=== PATIENT | male | born 1955 | race African-American/Black ===

== ENCOUNTER 2020-12-24 18:45 | Inpatient (IN) | payer MEDICARE, OTHER ==
[~2020-12-24] VITALS: Ht 177.8 cm; Wt 75.2 kg
[2020-12-24 19:15] LABS: BASOPHILS ABSOLUTE AUTO 0.03 K/mm3 (0.00-0.23); BASOPHILS PERCENT AUTO 1 % (0-2); EOSINOPHILS ABSOLUTE AUTO 0.22 K/mm3 (0.00-0.68); EOSINOPHILS PERCENT AUTO 4 % (0-6); Hematocrit 39.9 % (37.0-53.0); Hemoglobin 12.3 g/dL (13.5-17.5); IMMATURE GRAN ABSOLUTE AUTO 0.02 K/mm3 (0.00-0.10); IMMATURE GRAN PERCENT AUTO 0 % (0-1); LYMPHOCYTES ABSOLUTE AUTO 2.33 K/mm3 (0.84-5.20); LYMPHOCYTES PERCENT AUTO 37 % (21-46); MONOCYTES ABSOLUTE AUTO 0.46 K/mm3 (0.16-1.47); MONOCYTES PERCENT AUTO 7 % (4-13); Mean Corpuscular HGB 29.6 pg (26.0-34.0); Mean Corpuscular HGB Conc 30.8 g/dL (31.5-36.5); Mean Corpuscular Volume 96 fL (80-100); Mean Platelet Volume 11.5 fL (9.1-12.4); NEUTROPHILS ABSOLUTE AUTO 3.22 K/mm3 (1.96-9.15); NEUTROPHILS PERCENT AUTO 51 % (41-73); Platelet Count 195 K/mm3 (150-400); RDW Standard Deviation 49.5 fL (35.1-46.3); Red Blood Cell Count 4.15 M/mm3 (4.30-5.90); White Blood Cell Count 6.28 K/mm3 (4.00-11.30)
[2020-12-24 19:37] LABS: Magnesium, Blood 2.8 mg/dL (1.6-2.4)
[2020-12-24 19:39] LABS: Albumin, Blood 3.9 g/dL (3.4-5.0); Albumin/Globulin Ratio 0.8 (0.8-1.8); Bilirubin, Total 0.3 mg/dL (0.1-1.0); Bun/Creatinine Ratio 5.7 (12.0-20.0); Calcium, Blood 9.2 mg/dL (8.5-10.1); Creatinine, Blood 12.6 mg/dL (0.60-1.20); Phosphorus, Blood 4.4 mg/dL (2.5-4.9); Potassium, Blood 4.4 mmol/L (3.5-5.5); Total Protein, Blood 8.9 g/dL (6.4-8.2)
[2020-12-25 01:19] LABS: BASOPHILS ABSOLUTE AUTO 0.02 K/mm3 (0.00-0.23); BASOPHILS PERCENT AUTO 0 % (0-2); EOSINOPHILS ABSOLUTE AUTO 0.17 K/mm3 (0.00-0.68); EOSINOPHILS PERCENT AUTO 4 % (0-6); Hematocrit 33.9 % (37.0-53.0); Hemoglobin 10.7 g/dL (13.5-17.5); IMMATURE GRAN ABSOLUTE AUTO 0.01 K/mm3 (0.00-0.10); IMMATURE GRAN PERCENT AUTO 0 % (0-1); LYMPHOCYTES ABSOLUTE AUTO 1.26 K/mm3 (0.84-5.20); LYMPHOCYTES PERCENT AUTO 26 % (21-46); MONOCYTES ABSOLUTE AUTO 0.56 K/mm3 (0.16-1.47); MONOCYTES PERCENT AUTO 12 % (4-13); Mean Corpuscular HGB 29.9 pg (26.0-34.0); Mean Corpuscular HGB Conc 31.6 g/dL (31.5-36.5); Mean Corpuscular Volume 95 fL (80-100); Mean Platelet Volume 12.6 fL (9.1-12.4); NEUTROPHILS ABSOLUTE AUTO 2.86 K/mm3 (1.96-9.15); NEUTROPHILS PERCENT AUTO 59 % (41-73); Platelet Count 139 K/mm3 (150-400); RDW Coefficient Variation 13.8 % (11.7-14.2); RDW Standard Deviation 48.2 fL (35.1-46.3); Red Blood Cell Count 3.58 M/mm3 (4.30-5.90); White Blood Cell Count 4.88 K/mm3 (4.00-11.30)
[2020-12-25 01:50] LABS: Albumin, Blood 3.4 g/dL (3.4-5.0); Albumin/Globulin Ratio 0.8 (0.8-1.8); Bilirubin, Total 0.3 mg/dL (0.1-1.0); Creatinine, Blood 13.1 mg/dL (0.60-1.20); Globulin, Blood 4.2 g/dL (2.2-4.0); Potassium, Blood 4.7 mmol/L (3.5-5.5); Total Protein, Blood 7.6 g/dL (6.4-8.2)
--- NOTE | 2020-12-25 02:28 | NUR ---
PT NEW ADMIT, ARRIVED TO UNIT AROUND 0037. PT ARRIVED TO UNIT UNRESPONSIVE EVEN AFTER STAFF TRANSFERED PT FROM ER STRETCHER TO HOSPITAL BED. PT'S BEEN STERNAL RUBBED WITH NO RESPONSE. PT RESPIRATIONS 6-8/MIN WITH APNEIC EPISODES SATTING IN THE HIG 90'S. 2L NC APPLIED. DR. FUENTES MADE AWARE AND ORDERED ROMAZICON PT RECIEVED 2MG IV AITVAN IN THE ER. OPTOMETRIC COORDINATOR CALLED. PT RECIEVED IV ROMAZICON, ANOTHER STERNAL RUB WAS PERFORMED WELL PRESSURE TO NAIL BED AND PT WOKE UP VERY CONFUSED AND TRYING TO EXIT THE BED AND SWINGING HIS ARMS. DR. FUENTES ORDERED IV BENADRYL AND MACRIN VEST. AFTER BENADRYL GIVEN, PT WENT BACK TO SLEEP. TELE RUNNING SINUS KEN IN THE LOW 50'S PER RESOURCE DEVELOPMENT MANAGER. MARCIN PLACED FOR SAFETY, FALL RISK, AND DUE TO SEDATIVE MEDS. CONTINTOUS PULSE OX IN PLACE. BED ALARM ON, CALL LIGHT WITHIN REACH, WILL CONTINUE TO MONITOR.
--- NOTE | 2020-12-25 07:27 | NUR ---
CHANGE MANAGEMENT MANAGER SUMMARY PT SEDATED ALL NIGHT AND WOKE UP AROUND 0600 THIS MORNING AND STARTED FLINGING HIS ARMS AROUND AND TRYING TO EXIT THE BED. PT DISORIENTED AND CANNOT BE RE-DIRECTED. DR. FUENTES LET KNOWN AND BENADRYL IV WAS ORDERED AND GIVEN. PT CONTINUES TO BE AGITATED AND TRIES TO SCOOCH OFF THE BED. PT BOOSTED UP IN BED BY STAFF AND SAID "MY LEG" WHEN RN ASKED IF HE WAS IN PAIN PT RESPONDED WITH "YES". IV FENTENYL GIVEN FOR PAIN PER EMAR. VSS. REPORT GIVEN TO ONCOMING RN. BED ALARM ON.
[2020-12-25] MEDS ORDERED: PROAIR RESPICL90 MCG INH (10:03)
[2020-12-25] MEDS ORDERED: AMLO10 PO (10:03)
[2020-12-25] MEDS ORDERED: ASPI81CH PO (10:04)
[2020-12-25] MEDS ORDERED: ATOR40TA PO (10:04)
[2020-12-25] MEDS ORDERED: BACL10 PO (10:07)
[2020-12-25] MEDS ORDERED: Calcium Acetat667 MG PO (10:08)
[2020-12-25] MEDS ORDERED: CARV25 PO (10:09)
[2020-12-25] MEDS ORDERED: CLON.1 PO (10:10)
[2020-12-25] MEDS ORDERED: CLOP75 PO (10:10)
[2020-12-25] MEDS ORDERED: GABA100 PO (10:11)
[2020-12-25] MEDS ORDERED: Norco 5-325 Ta1 EACH PO (10:12)
[2020-12-25] MEDS ORDERED: HYDHCL25 PO (10:13)
[2020-12-25] MEDS ORDERED: LACT10SY PO (10:14)
[2020-12-25] MEDS ORDERED: LOSA50 PO (10:14)
[2020-12-25] MEDS ORDERED: LINZESS145 MCG PO (10:14)
[2020-12-25] MEDS ORDERED: MELA3 PO (10:15)
[2020-12-25] MEDS ORDERED: SERT50 PO (10:15)
[2020-12-25] MEDS ORDERED: Nicoderm Cq1 EACH TOP (10:15)
[2020-12-25 13:14] LABS: SARS-Cov-2 (COVID-19) PCR, MMC NEGATIVE (NEGATIVE)
--- NOTE | 2020-12-25 18:45 | NUR ---
SHIFT SUMMARY NOTE: PT A/O TO SELF. HE IS MUCH MORE ALERT AND ABLE TO ANSWER QUESTIONS AT THIS TIME BUT FORGETS SITUATION AND BECOMES VERY ANXIOUS. RE-ORIENTING IS HELPFUL AND CALLING HIS SISTER TO TALK HAS ALSO HELPED. PAIN IS CURRENTLY MANAGED WITH FENTANYL 50 MCG. PT REMAINS IN UPPER EXTREMITY RESTRAINTS AND MARCIN VEST DUE TO CONFUSION AND PULLING ON LINES.
--- NOTE | 2020-12-26 06:44 | NUR ---
SHIFT SUMMARY A/O TO SELF AND FAMILY ONLY. ANXIOUS T/O NIGHT AND YELLING OUT. PT RESTLESS ENTIRE NIGHT. PT ALSO PULLED OUT IV THIS SHIFT. MEDICATED FOR PAIN AND ANXIETY, PLEASE SEE PAPER CHART D/T DOWNTIME. VSS, WILL CONTINUE TO MONITOR AND REPORT TO ONCOMING RN.
[2020-12-26 07:17] LABS: Hematocrit 34.8 % (37.0-53.0); Hemoglobin 10.9 g/dL (13.5-17.5)
[2020-12-26 07:44] LABS: Magnesium, Blood 2.5 mg/dL (1.6-2.4)
[2020-12-26 07:52] LABS: Albumin, Blood 3.9 g/dL (3.4-5.0); Anion Gap 13 mmol/L (6-16); Blood Urea Nitrogen 64 mg/dL (8-24); Bun/Creatinine Ratio 5.4 (12.0-20.0); CO2, Blood 26 mmol/L (21-32); Calcium, Blood 9.8 mg/dL (8.5-10.1); Chloride, Blood 97 mmol/L (98-108); Glomerular Filtration Rate 4 (60-); Glucose, Blood 72 mg/dL (70-99); Phosphorus, Blood 5.6 mg/dL (2.5-4.9); Potassium, Blood 4.5 mmol/L (3.5-5.5); Sodium, Blood 136 mmol/L (136-145)
--- NOTE | 2020-12-26 12:16 | NUR ---
REPORT GIVEN TO JORGITO PRATT. MEDICATED FOR PAIN AND PT HAD DIALYSIS THIS AM.
--- NOTE | 2020-12-26 17:26 | NUR ---
NO ACUTE CHANGES SINCE ASSUMPTION OF CARE AT 1430. PT CLEARED FOR REGULAR DIET BY SPEECH AT THIS TIME. TOLERATED A SANDWICH AT LUNCH WITH NO DIFFICULTY ABLE TO FEED SELF WELL. PT IS COOPERATIVE WITH STAFF AND ENJOYED SHARING STORIES ABOUT HIS FAVORITE FOODS AND MEALS. AA0X3 FOR ME DURING THIS SHIFT. MARCIN REMAINS ON. CALL LIGHT IS IN REACH. PT MAKES NEEDS KNOWN
--- NOTE | 2020-12-26 18:24 | NUR ---
PT JAIRO AA0X4, HE WAS ABLE TO ANSWER ALL QUESTIONS APPROPRIATLY REGARDING LOCATION, DATE, TIME, ETC... PT REPOSITIONING SELF IN BED AND CARRYING ON CONVERSATION. WILL DISCUSS WITH ONCOMING RN DISCONTINUING RESTRAINTS IF COGNITIVE STATUS CONTINUES TO IMPROVE.
--- NOTE | 2020-12-27 04:56 | NUR ---
SHIFT SUMMARY PT HAS HAD A GOOD NIGHT, HE HOWEVER HAS NOT SLEPT MUCH AND HAS HAD TV MOST OF THE NIGHT. PT MENTATION HAS CLEARED SINCE BEING TRANSFERRED TO THE SCU YESTERDAY. PT IS NOW A/OX4 AND IS NO LONGER CONFUSED. PT USES CALL LIGHT FREQUENTLY BUT CALLS WHEN NEEDING ASSISTANCE AND DOES NOT ATTEMPT TO GET OOB ON HIS OWN. PT STRENGTH HAS RETURNED AND HE WAS ABLE TO GET OOB BED AND AMBULATE SOME WITH MINIMAL PAIN. MARCIN CUMMINS DC'D THIS SHIFT. PT MEDICATED FOR HIP AND LEG PAIN THIS SHIFT. CLINIMIX INFUSING ORDERED. VITALS STABLE, BED IN LOWEST POSITION, CALL LIGHT WITHIN REACH.
--- NOTE | 2020-12-27 09:23 | NUR ---
CALLED DR FOR RUNS OF VTACH THIS AM,; PT DENIES CP OR ANY DISCOMFORT. DR AWARE AND INFORMED. PT GIVEN MORNING BP MEDS AND HYDRALIZINE
--- NOTE | 2020-12-27 17:49 | NUR ---
SHIFT SUMMARY PT ALERT ORIENTED AND MENTATION IMPROVED TODAY; PT WORKED WITH PT/OT TODAY. UPDATED [facility] IN [facility]. C/O PLEURITIC STERNAL PAIN AND DR WAS AT BEDSIDE- NS PER TELE. MEDICATED FOR PAIN PER EMAR. 2L ON 02; PT WON'T KEEP 02 ON AND STATED ONLY PRN WHEN HE IS AT HOME. SATS ABOVE 90S ON RA. BED ALARM IS ON AND CALL LIGHT WITHIN REACH
--- NOTE | 2020-12-28 06:19 | NUR ---
SHIFT SUMMARY PATIENT ALERT AND ORIENTED. WAS MEDICATED PER EMAR FOR PAIN. PATIENT HAD NO COMPLAINTS OF SHORTNESS OF BREATH. SLEPT WELL OVERNIGHT. NO ACUTE ISSUES NOTED. IV PATENT AND FLUSHED. BED IN LOWEST POSITION WITH WHEELS LOCKED AND ALARM ON. CALL LIGHT WITHIN REACH. REPORT GIVEN TO ONCOMING RN.
--- NOTE | 2020-12-28 11:59 | NUR ---
DIALYSIS WAS HAVING TROUBLE WITH PUTTING DR'S HD ORDERS IN COMPUTER. CALLED IT SUPPORT AFTER PT ON MACHINE. THEY WERE ABLE TO THE PROGRAM BACK ON THE COMPUTER.
--- NOTE | 2020-12-28 18:28 | NUR ---
SHIFT SUMMARY: NO ACUTE EVENTS TO REPORT THIS SHIFT. PT A&O; CALM AND COOPERATIVE WITH CARE. MEDICATED FOR L HIP PAIN PER EMAR. DIALYSIS THIS SHIFT; PT TOLERATED WELL. EXPECTED D/C HOME c HOME HEALTH FRIDAY, 12/29. WCTM.
--- NOTE | 2020-12-28 23:38 | NUR ---
PHONE CALL TO DR. HASSAN REQUESTING ADDITIONAL BOWEL CARE D/T CONSTIPATION, DR. HOU WITH ORDERS FOR DULCOLAX PRN BID ND 10 MG.
--- NOTE | 2020-12-29 00:47 | NUR ---
TELEMETRY V-TACH 0025: IDENTIFIER HORSE CALLED TO REPORT THAT PT HAD 7 BEAT RUN OF VTACH. NURSE ASSESSED PT - PT DENIES CHEST PAIN OR PRESSURE. HE REPORTS FEELING "PEAKY ABOUT AN HOUR AND A HALF AGO." STATES THAT HE WAS "JUST COUGHING A FEW MINUTES AGO." REPORTS MUSCLE SPASMS IN BILAT LOWER EXTREMITIES THAT ARE PREVENTING HIM FROM SLEEPING. ADMINISTERED PAIN MEDICATION PER EMAR. WILL CONTINUE TO MONITOR.
--- NOTE | 2020-12-29 04:29 | NUR ---
SHIFT SUMMARY PT HAD A RESTLESS NIGHT, C/O ANXIETY AND RESTLESSNESS. TREATED WITH PRN MEDICATION, SEE EMAR. PT REPORTS PAIN IN LEFT HIP AND SPASMS IN MUSCLES OF BLE. 22 GAUGE IV IN RFA FLUSHES WELL. TELEMETRY MONITORING, NSR 60 - 70'S. PT HAD ONE EPISODE OF V-TACH AT 0025, NO FURTHER EVENTS. NO C/O CHEST PAIN OR PRESSURE. PT ON ROOM AIR. PLAN IS FOR D/C WITH HOME HEALTH.
--- NOTE | 2020-12-29 06:41 | NUR ---
RECEIVED PT A BED TRANSFER FROM MEDICAL FLOOR SCU. PT ALERT AND ORIENTED X4, EMOTIONAL RE RECENT LOSS OF . PT PAIN TREATED PER EMAR. STAFF WILL CONT. TO MONITOR FOR CHANGES.
--- NOTE | 2020-12-29 11:51 | NUR ---
DISCHARGE:pt states his neighbor would be able to provide any assistance he might need to get out of a taxi but that he does not anticpate needing any aid, currently working with ot getting dressed to be ready to dc, will remove iv, have sent back tele, will continue to monitor and treat until bring him down to meet taxi at 1230
== END 2020-12-29 12:34 | disposition home health service (06) | DRG 91 ==
LOC: ER 18:45 → MEDS 18:46 → ENPENDDIS 12-29 08:37 → MEDS 12-29 12:34
PROVIDERS: Internal Medicine; Internal Medicine Nephrology; Student in an Organized Health Care Education/Training Program; ADMIT Internal Medicine
PROC: 5A1D70Z Performance of Urinary Filtration, Intermittent, Less than 6 Hours Per Day (ICD-10-PCS; principal; 2020-12-29)
DX: G92 Toxic encephalopathy (principal); N18.6 End stage renal disease; J18.9 Pneumonia, unspecified organism; I12.0 Hypertensive chronic kidney disease with stage 5 chronic kidney disease or end stage renal disease; E87.1 Hypo-osmolality and hyponatremia; Z20.822 Contact with and (suspected) exposure to COVID-19; Z99.2 Dependence on renal dialysis; Z79.899 Other long term (current) drug therapy; M12.852 Other specific arthropathies, not elsewhere classified, left hip; Z79.01 Long term (current) use of anticoagulants; Z95.2 Presence of prosthetic heart valve; Z98.890 Other specified postprocedural states; Z79.02 Long term (current) use of antithrombotics/antiplatelets; D64.9 Anemia, unspecified; E86.9 Volume depletion, unspecified; E86.1 Hypovolemia; F41.9 Anxiety disorder, unspecified
CPT/HCPCS: 36415; 70450; 71045; 72170; 72192; 80053; 80069; 82140; 83735; 84100; 84132; 85014; 85018; 85025; 92610; 93005; 93010; 94762; 96372; 96374-59; 96375; 96375-59; 96376; 97110; 97116; 97162; 97166; 97530; 97535; 99285-25; A9270; G0257; G0378; J0360; J0881; J1200; J1644; J1956; J2060; J2270; J2405; J3010; J7131; U0004